=== PATIENT | male | born 1945 | race Caucasian/White ===

== ENCOUNTER → 2017-02-04 | Outpatient (CLI) | payer MEDICARE ==
[~2017-02-04] MED LIST: CARV-39 PO; LEUP3.75 IM; LOSA1TAB18 PO; OMNIPAQUE 350 MG/ML, 100ML BOTTLE ONE; PRAV40TA2 PO; [UNRECOGNIZED DRUG - OTHER]; [UNRECOGNIZED DRUG - OTHER] IV
== END | disposition home or self-care (01) ==
LOC: CFH 08:44
PROVIDERS: ATTEND Internal Medicine Hematology & Oncology
DX: C79.51 Secondary malignant neoplasm of bone (principal); M48.56XA Collapsed vertebra, not elsewhere classified, lumbar region, initial encounter for fracture; K44.9 Diaphragmatic hernia without obstruction or gangrene; C61 Malignant neoplasm of prostate; N28.1 Cyst of kidney, acquired; I72.3 Aneurysm of iliac artery
CPT/HCPCS: 71260; 74177; Q9967

== ENCOUNTER → 2017-02-04 | Outpatient (CLI) | payer MEDICARE ==
[~2017-02-04] MED LIST changes: -OMNIPAQUE 350 MG/ML, 100ML BOTTLE ONE
== END | disposition home or self-care (01) ==
LOC: PETCFH 08:40
PROVIDERS: ATTEND Internal Medicine Hematology & Oncology
DX: Z02.9 Encounter for administrative examinations, unspecified (principal)

== ENCOUNTER → 2017-02-06 | Outpatient (CLI) | payer MEDICARE | END | disposition home or self-care (01) | LOC: PETCFH 09:47 | PROVIDERS: ATTEND Internal Medicine Hematology & Oncology | DX: C61 Malignant neoplasm of prostate (principal) | CPT/HCPCS: 78306; A9503 ==

== ENCOUNTER → 2017-05-01 | Outpatient (CLI) | payer MEDICARE ==
[~2017-05-01] MED LIST changes: +AMINOPHYLLINE 25 MG/ML, 10ML ONE; +ASPI-621 PO; +ATOR40TA78 PO; +CARV3.1212 PO; +DEXA4TAB PO; +DOCE20VI IV; +ENZA40CA PO; +HYDR-3341 PO; +LEUP30SY PO; +LOSA50TA6 PO; +MONT10TA9 PO; +ONDA4TAB10 PO; +PANT40TA5 PO; +REGADENOSON 0.4 MG/5 ML SYRINGE ONE; +SUCR1TAB33 PO; +[UNRECOGNIZED DRUG - OTHER] PO
== END | disposition home or self-care (01) ==
LOC: CFH 12:06
PROVIDERS: ATTEND Internal Medicine Cardiovascular Disease
DX: I35.0 Nonrheumatic aortic (valve) stenosis (principal); I35.1 Nonrheumatic aortic (valve) insufficiency; R07.89 Other chest pain; R06.02 Shortness of breath; I10 Essential (primary) hypertension; Z87.891 Personal history of nicotine dependence; Z85.46 Personal history of malignant neoplasm of prostate
CPT/HCPCS: 78452; 93017; 93306; A9502; J0280; J2785

== ENCOUNTER 2017-05-03 11:58 | Inpatient (IN) | payer MEDICARE ==
[~2017-05-03] VITALS: Ht 177.8 cm; Wt 94.6 kg
[~2017-05-03 11:58] MED LIST changes: -AMINOPHYLLINE 25 MG/ML, 10ML ONE; -ASPI-621 PO; -ATOR40TA78 PO; -CARV3.1212 PO; -DEXA4TAB PO; -DOCE20VI IV; -ENZA40CA PO; -HYDR-3341 PO; -LEUP30SY PO; -LOSA50TA6 PO; -MONT10TA9 PO; -ONDA4TAB10 PO; -PANT40TA5 PO; -REGADENOSON 0.4 MG/5 ML SYRINGE ONE; -SUCR1TAB33 PO; -[UNRECOGNIZED DRUG - OTHER] PO
[2017-05-03] MEDS ORDERED: PANTOPRAZOLE 80 MG in SODIUM CHLORIDE 0.9% 50 ML IVPB ONE (12:02)
[2017-05-03] MEDS ORDERED: SODIUM CHLORIDE 0.9% 1,000 ML IV ONE (12:02)
[2017-05-03] MEDS ORDERED: PANTOPRAZOLE 80 MG in SODIUM CHLORIDE 0.9% 100 ML IV SCH (12:02)
[2017-05-03 12:23] LABS: WHITE BLOOD COUNT 12.4 x10^3/uL (3.4-10)
[2017-05-03 12:26] LABS: HEMATOCRIT 16.5 % (39.2-51.8); HEMOGLOBIN 5.2 g/dL (13.7-18.0)
[2017-05-03 12:30] LABS: ASPARTATE AMINO TRANSFERASE 9 U/L (15-37); BLOOD UREA NITROGEN 43 mg/dL (7-18)
[2017-05-03] MEDS ORDERED: SODIUM CHLORIDE FLUSH 10ML SYR IVF ONE (12:30)
[2017-05-03] MEDS ORDERED: SODIUM CHLORIDE 0.9% 1,000ML IVBOLUS ONE (12:30)
[2017-05-03] MEDS ORDERED: ATOR40TA78 PO (12:33)
[2017-05-03] MEDS ORDERED: LOSA50TA6 PO (12:33)
[2017-05-03] MEDS ORDERED: [UNRECOGNIZED DRUG - OTHER] PO (12:33)
[2017-05-03] MEDS ORDERED: LEUP30SY PO (12:33)
[2017-05-03 12:36] LABS: IS PT STATUS REG ER OR PRE ER? YES
[2017-05-03] MEDS ORDERED: ENZA40CA PO (12:36)
[2017-05-03] MEDS ORDERED: MONT10TA9 PO (12:36)
[2017-05-03] MEDS ORDERED: DOCE20VI IV (12:36)
[2017-05-03] MEDS ORDERED: DEXA4TAB PO (12:37)
[2017-05-03 12:41] LABS: ANISOCYTOSIS 2+; POLYCHROMASIA 1+; SCHISTOCYTES 1+
[2017-05-03 12:43] LABS: OVALOCYTES 1+
[2017-05-03] MEDS ORDERED: ONDANSETRON 2MG/ML, 2ML ONE (12:43)
[2017-05-03] MEDS ORDERED: HYDR-3341 PO (12:52)
[2017-05-03] MEDS ORDERED: ONDA4TAB10 PO (12:52)
[2017-05-03] MEDS ORDERED: ONDANSETRON 2MG/ML, 2ML IVPush ONE (13:00)
[2017-05-03 13:03] VITALS: BP 112/69
[2017-05-03 13:17] VITALS: BP 101/59
[2017-05-03] MEDS ORDERED: SODIUM CHLORIDE FLUSH 10ML SYR IVF PRN (13:30)
[2017-05-03 13:55] VITALS: BP 107/65
[2017-05-03] MEDS ORDERED: ONDANSETRON 2MG/ML, 2ML IVPush PRN (14:00)
[2017-05-03] MEDS ORDERED: POLYETHYLENE GLYCOL 17 GM PACKET PO PRN (14:00)
[2017-05-03] MEDS ORDERED: ACETAMINOPHEN 325 MG TABLET PO PRN (14:00)
[2017-05-03] MEDS ORDERED: OXYcodone IR 5MG TABLET PO PRN (14:00)
[2017-05-03 14:15] VITALS: BP 97/48
[2017-05-03 14:26] VITALS: BP 94/64
[2017-05-03 15:51] VITALS: BP 89/56
[2017-05-03] MEDS: SODIUM CHLORIDE 0.9% 1,000 ML IV SCH (18:00)
[2017-05-03] MEDS: PANTOPRAZOLE 80 MG in SODIUM CHLORIDE 0.9% 100 ML IV SCH ×2 (18:01→19:53)
[2017-05-03 18:33] LABS: IS PT STATUS REG ER OR PRE ER? NO
[2017-05-03] MEDS: ATORVASTATIN 80 MG TABLET PO SCH (20:54)
[2017-05-03] MEDS ORDERED: MORPHINE SULFATE 4 MG/ML, 1ML ONE (21:08)
[2017-05-03] MEDS ORDERED: MORPHINE SULFATE 4 MG/ML, 1ML IVPush PRN (21:30)
[2017-05-03 22:55] LABS: IS PT STATUS REG ER OR PRE ER? NO
[2017-05-04] VITALS (9 sets, daily range): BP systolic 95–122; BP diastolic 54–73
[2017-05-04 04:52] LABS: BLOOD UREA NITROGEN 26 mg/dL (7-18)
[2017-05-04 04:53] LABS: WHITE BLOOD COUNT 12.4 x10^3/uL (3.4-10)
[2017-05-04 04:54] LABS: HEMATOCRIT 20.5 % (39.2-51.8); HEMOGLOBIN 6.7 g/dL (13.7-18.0)
[2017-05-04 04:59] LABS: ASPARTATE AMINO TRANSFERASE 14 U/L (15-37)
[2017-05-04] MEDS ORDERED: SODIUM CHLORIDE 0.9% 500 ML IV SCH ×2 (05:03→19:30)
[2017-05-04 05:06] LABS: IS PT STATUS REG ER OR PRE ER? NO
[2017-05-04] MEDS: PANTOPRAZOLE 80 MG in SODIUM CHLORIDE 0.9% 100 ML IV SCH ×2 (05:33→17:24)
[2017-05-04] MEDS: SODIUM CHLORIDE 0.9% 1,000 ML IV SCH ×2 (05:33→17:25)
[2017-05-04] MEDS: SENNA/DOCUSATE TABLET PO SCH (09:00)
[2017-05-04] MEDS ORDERED: FENTANYL PF 100 MCG/2ML ONE (09:59)
[2017-05-04] MEDS ORDERED: PHENYLEPHRINE 10 MG/ML ONE (10:02)
[2017-05-04] MEDS ORDERED: PROPOFOL 10 MG/ML, 20ML ONE (10:02)
[2017-05-04 13:15] LABS: IS PT STATUS REG ER OR PRE ER? NO
[2017-05-04] MEDS: CARVEDILOL 3.125 MG TABLET PO SCH (17:24)
[2017-05-04 18:35] LABS: IS PT STATUS REG ER OR PRE ER? NO
[2017-05-04] MEDS ORDERED: POLYETHYLENE GLYCOL 17 GM PACKET PO PRN (19:30)
[2017-05-04] MEDS ORDERED: ACETAMINOPHEN 325 MG TABLET PO PRN (19:30)
[2017-05-04] MEDS ORDERED: OXYcodone IR 5MG TABLET PO PRN (19:30)
[2017-05-04] MEDS ORDERED: SODIUM CHLORIDE 0.9% 1,000 ML IV SCH (19:30)
[2017-05-04] MEDS ORDERED: ONDANSETRON 2MG/ML, 2ML IVPush PRN (19:30)
[2017-05-04] MEDS ORDERED: MORPHINE SULFATE 4 MG/ML, 1ML IVPush PRN (19:30)
[2017-05-04] MEDS: ATORVASTATIN 80 MG TABLET PO SCH (20:45)
[2017-05-04] MEDS: SUCRALFATE 1 GM/10 ML UDC PO SCH (20:46)
[2017-05-05 00:23] LABS: IS PT STATUS REG ER OR PRE ER? NO
[2017-05-05 04:00] VITALS: BP 117/61
[2017-05-05 04:47] LABS: HEMATOCRIT 24.7 % (39.2-51.8); HEMOGLOBIN 8.1 g/dL (13.7-18.0); WHITE BLOOD COUNT 11.8 x10^3/uL (3.4-10)
[2017-05-05 04:49] LABS: BLOOD UREA NITROGEN 10 mg/dL (7-18)
[2017-05-05] MEDS: PANTOPRAZOLE 80 MG in SODIUM CHLORIDE 0.9% 100 ML IV SCH (05:43)
[2017-05-05] MEDS: CARVEDILOL 3.125 MG TABLET PO SCH ×2 (05:47→17:36)
[2017-05-05] MEDS: SENNA/DOCUSATE TABLET PO SCH ×2 (09:00→17:37)
[2017-05-05] MEDS: PANTOPROZOLE 40MG TABLET PO SCH ×2 (09:39→22:01)
[2017-05-05] MEDS: SUCRALFATE 1 GM/10 ML UDC PO SCH ×4 (09:39→22:01)
[2017-05-05] MEDS: POTASSIUM CHLORIDE 20 MEQ TAB.ER.PRT PO SCH ×2 (10:15→17:36)
[2017-05-05 14:33] VITALS: BP 119/71
[2017-05-05 20:10] VITALS: BP 100/52
[2017-05-05] MEDS: ATORVASTATIN 80 MG TABLET PO SCH (22:01)
[2017-05-06 03:01] VITALS: BP 92/57
[2017-05-06] MEDS: CARVEDILOL 3.125 MG TABLET PO SCH (05:45)
[2017-05-06 08:00] VITALS: BP 107/69
[2017-05-06] MEDS: PANTOPROZOLE 40MG TABLET PO SCH (09:09)
[2017-05-06] MEDS: SUCRALFATE 1 GM/10 ML UDC PO SCH ×2 (09:09→11:47)
[2017-05-06] MEDS: SENNA/DOCUSATE TABLET PO SCH (09:09)
[2017-05-06] MEDS ORDERED: ASPIRIN 81 MG TABLET EC PO SCH (10:00)
[2017-05-06] MEDS ORDERED: CARV3.1212 PO (13:36)
[2017-05-06] MEDS ORDERED: PANT40TA5 PO (13:36)
[2017-05-06] MEDS ORDERED: ASPI-621 PO (13:36)
[2017-05-06] MEDS ORDERED: SUCR1TAB33 PO (13:36)
== END 2017-05-06 15:51 | disposition home or self-care (01) | DRG 377 ==
LOC: ED 13:17 → EDIP 13:18 → ED 13:38 → CCU 16:06 → 5SO 05-05 11:58
PROVIDERS: ADMIT Internal Medicine; ATTEND Internal Medicine
PROC: 30233N1 Transfusion of Nonautologous Red Blood Cells into Peripheral Vein, Percutaneous Approach (ICD-10-PCS; principal; 2017-05-03)
PROC: 0DJ08ZZ Inspection of Upper Intestinal Tract, Via Natural or Artificial Opening Endoscopic (ICD-10-PCS; 2017-05-04)
PROC: 30233N1 Transfusion of Nonautologous Red Blood Cells into Peripheral Vein, Percutaneous Approach (ICD-10-PCS; 2017-05-04)
DX: K25.4 Chronic or unspecified gastric ulcer with hemorrhage (principal); E43 Unspecified severe protein-calorie malnutrition; R57.9 Shock, unspecified; E87.2 Acidosis; C79.9 Secondary malignant neoplasm of unspecified site; C61 Malignant neoplasm of prostate; I24.8 Other forms of acute ischemic heart disease; I35.0 Nonrheumatic aortic (valve) stenosis; D72.829 Elevated white blood cell count, unspecified; D62 Acute posthemorrhagic anemia; I25.10 Atherosclerotic heart disease of native coronary artery without angina pectoris; I25.5 Ischemic cardiomyopathy; I10 Essential (primary) hypertension; E78.5 Hyperlipidemia, unspecified; E66.9 Obesity, unspecified; D50.9 Iron deficiency anemia, unspecified; I25.2 Old myocardial infarction; J45.909 Unspecified asthma, uncomplicated; K44.9 Diaphragmatic hernia without obstruction or gangrene; Z82.49 Family history of ischemic heart disease and other diseases of the circulatory system; Z87.442 Personal history of urinary calculi; Z92.21 Personal history of antineoplastic chemotherapy; Z68.29 Body mass index [BMI] 29.0-29.9, adult; Z87.891 Personal history of nicotine dependence
CPT/HCPCS: 36415; 71010; 78452; 80048; 80053; 83605; 83735; 83880; 84484; 85018; 85025; 85610; 85730; 86850; 86900; 86923; 87081; 87338; 93005; 96365; 96366; 96375; J2405; J2704; J3010; C9113; J2370; J7030; J7040; P9016

== ENCOUNTER 2017-05-13 09:09 | Inpatient (IN) | payer MEDICARE ==
[~2017-05-13] VITALS: Ht 180.3 cm; Wt 97.7 kg
[~2017-05-13 09:09] MED LIST changes: +ASPI-621 PO; +ATOR40TA78 PO; +CARV3.1212 PO; +DEXA4TAB PO; +DOCE20VI IV; +ENZA40CA PO; +HYDR-3341 PO; +LEUP30SY PO; +LOSA50TA6 PO; +MONT10TA9 PO; +ONDA4TAB10 PO; +PANT40TA5 PO; +SUCR1TAB33 PO; +[UNRECOGNIZED DRUG - OTHER] PO
[2017-05-13] MEDS ORDERED: ONDANSETRON 2MG/ML, 2ML ONE (09:55)
[2017-05-13] MEDS ORDERED: FAMOTIDINE 20 MG/2 ML ONE (09:56)
[2017-05-13] MEDS ORDERED: SODIUM CHLORIDE 0.9% 1,000ML IVBOLUS ONE (10:00)
[2017-05-13] MEDS ORDERED: PANTOPRAZOLE 80 MG in SODIUM CHLORIDE 0.9% 50 ML IV ONE (10:00)
[2017-05-13] MEDS ORDERED: FAMOTIDINE 20 MG/2 ML IVP ONE (10:00)
[2017-05-13] MEDS ORDERED: ONDANSETRON 2MG/ML, 2ML IVPush ONE (10:00)
[2017-05-13] MEDS ORDERED: SODIUM CHLORIDE FLUSH 10ML SYR IVF ONE (10:00)
[2017-05-13 10:05] LABS: HEMATOCRIT 25.4 % (39.2-51.8); HEMOGLOBIN 8.2 g/dL (13.7-18.0); WHITE BLOOD COUNT 10.3 x10^3/uL (3.4-10)
[2017-05-13 10:14] LABS: ASPARTATE AMINO TRANSFERASE 15 U/L (15-37); BLOOD UREA NITROGEN 28 mg/dL (7-18)
[2017-05-13] MEDS ORDERED: PANTOPRAZOLE 80 MG in SODIUM CHLORIDE 0.9% 100 ML IV SCH (11:00)
[2017-05-13 11:19] LABS: IS PT STATUS REG ER OR PRE ER? YES
[2017-05-13 13:24] VITALS: BP 110/72
[2017-05-13] MEDS: PANTOPRAZOLE 80 MG in SODIUM CHLORIDE 0.9% 100 ML IV SCH ×2 (13:30→21:45)
[2017-05-13 13:41] LABS: TOTAL IRON BINDING CAPACITY 334 mcg/dL (250-450)
[2017-05-13] MEDS ORDERED: morphine SULFATE 10 MG/ML, 1ML IVPush PRN (14:00)
[2017-05-13] MEDS ORDERED: TEMAZEPAM 15 MG CAPSULE PO PRN (14:00)
[2017-05-13] MEDS ORDERED: ONDANSETRON 2MG/ML, 2ML IVPush PRN (14:00)
[2017-05-13] MEDS ORDERED: hydrALAzine 20 MG/ML, 1ML IVPush PRN (14:00)
[2017-05-13] MEDS ORDERED: HYDROcodone/APAP 5/325 TABLET PO PRN (14:00)
[2017-05-13] MEDS ORDERED: ACETAMINOPHEN 325 MG TABLET PO PRN (14:00)
[2017-05-13] MEDS: CARVEDILOL 3.125 MG TABLET PO SCH (17:36)
[2017-05-13] MEDS: SUCRALFATE 1 GM TABLET PO SCH ×2 (17:36→20:55)
[2017-05-13 20:50] VITALS: BP 109/64
[2017-05-13] MEDS: ATORVASTATIN 40 MG TABLET PO SCH (20:55)
[2017-05-14] VITALS (15 sets, daily range): BP systolic 89–126; BP diastolic 57–77
[2017-05-14] MEDS: CARVEDILOL 3.125 MG TABLET PO SCH ×2 (06:00→17:16)
[2017-05-14 06:06] LABS: HEMATOCRIT 23.2 % (39.2-51.8); HEMOGLOBIN 7.5 g/dL (13.7-18.0)
[2017-05-14] MEDS: SUCRALFATE 1 GM TABLET PO SCH ×4 (07:41→20:58)
[2017-05-14] MEDS: LOSARTAN 50MG TABLET PO SCH (08:51)
[2017-05-14] MEDS: PANTOPRAZOLE 80 MG in SODIUM CHLORIDE 0.9% 100 ML IV SCH ×2 (09:01→17:43)
[2017-05-14] MEDS ORDERED: DOCUSATE 100 MG CAPSULE PO PRN (18:30)
[2017-05-14] MEDS: ATORVASTATIN 40 MG TABLET PO SCH (20:58)
[2017-05-14 22:17] LABS: HEMATOCRIT 27.3 % (39.2-51.8); HEMOGLOBIN 9.1 g/dL (13.7-18.0)
[2017-05-15 02:27] VITALS: BP 96/60
[2017-05-15] MEDS: PANTOPRAZOLE 80 MG in SODIUM CHLORIDE 0.9% 100 ML IV SCH ×2 (02:42→12:30)
[2017-05-15 05:30] VITALS: BP 103/63
[2017-05-15] MEDS: CARVEDILOL 3.125 MG TABLET PO SCH (05:46)
[2017-05-15 05:52] LABS: HEMATOCRIT 28.5 % (39.2-51.8); HEMOGLOBIN 9.3 g/dL (13.7-18.0)
[2017-05-15 06:04] LABS: BLOOD UREA NITROGEN 16 mg/dL (7-18)
[2017-05-15 07:25] VITALS: BP 110/74
[2017-05-15] MEDS: SUCRALFATE 1 GM TABLET PO SCH ×2 (08:01→10:56)
[2017-05-15] MEDS: LOSARTAN 50MG TABLET PO SCH (08:01)
[2017-05-15 10:02] LABS: HEMOGLOBIN 9.7 g/dL (13.7-18.0)
[2017-05-15] MEDS ORDERED: FERR325T18 PO (10:58)
== END 2017-05-15 12:00 | disposition home or self-care (01) | DRG 378 ==
LOC: ED 09:22 → EDIP 10:42 → 4EST 12:53
PROVIDERS: ADMIT Internal Medicine; ATTEND Internal Medicine
PROC: 30233N1 Transfusion of Nonautologous Red Blood Cells into Peripheral Vein, Percutaneous Approach (ICD-10-PCS; principal; 2017-05-14)
DX: K25.4 Chronic or unspecified gastric ulcer with hemorrhage (principal); D62 Acute posthemorrhagic anemia; C79.51 Secondary malignant neoplasm of bone; C61 Malignant neoplasm of prostate; E86.1 Hypovolemia; E78.5 Hyperlipidemia, unspecified; I10 Essential (primary) hypertension; D50.9 Iron deficiency anemia, unspecified; I25.10 Atherosclerotic heart disease of native coronary artery without angina pectoris; I25.5 Ischemic cardiomyopathy; K44.9 Diaphragmatic hernia without obstruction or gangrene; Z80.7 Family history of other malignant neoplasms of lymphoid, hematopoietic and related tissues; Z82.49 Family history of ischemic heart disease and other diseases of the circulatory system; I25.2 Old myocardial infarction; Z86.14 Personal history of Methicillin resistant Staphylococcus aureus infection; Z90.49 Acquired absence of other specified parts of digestive tract; Z79.82 Long term (current) use of aspirin; Z79.899 Other long term (current) drug therapy
CPT/HCPCS: 36415; 80048; 80053; 83540; 83550; 84484; 85014; 85018; 85025; 85610; 86850; 86900; 86923; 93005; 96365; 96375; 96376; J2405; C9113; J7030; P9016; S0028